=== PATIENT | male | born 1955 | race Asian ===

== ENCOUNTER 2020-02-17 18:30 | Inpatient (IN) | payer OTHER ==
[~2020-02-17] VITALS: Ht 165.1 cm; Wt 55.0 kg
[2020-02-17 18:32] VITALS: Ht 165.1 cm; Wt 55.0 kg
[2020-02-17 19:45] LABS: PLATELET COUNT 228 x10^3mcL (130-400)
[2020-02-17 19:55] LABS: BASOPHIL % 0 % (0-2); RED CELL DISTRIBUTION WIDTH 24.6 % (11.5-14.5)
[2020-02-17 20:15] LABS: rbc morphology (normal/abnorm) ABNORMAL (NORMAL); target cell (codocyte) 2+
[2020-02-17 20:18] LABS: ALKALINE PHOSPHATASE 128 U/L (46-116); ALT/SGPT 21 U/L (16-63); AST/SGOT 65 U/L (15-37); BILIRUBIN TOTAL 0.41 mg/dL (0.20-1.00); CALCIUM 8.3 mg/dL (8.5-10.1); CARBON DIOXIDE 35.8 mmol/L (21-32); CHLORIDE SERUM 109 mmol/L (98-107); GFR1 > 60 mL/min; GLUCOSE SERUM 132 mg/dL (74-106); LIPASE 35 IU/L (73-393); MAGNESIUM 2.4 mg/dL (1.8-2.4); SODIUM SERUM 149 mmol/L (136-145)
[2020-02-17 20:21] LABS: TOTAL PROTEIN, SERUM 5.9 g/dL (6.4-8.2)
[2020-02-17 20:23] LABS: POTASSIUM SERUM 2.3 mmol/L (3.5-5.1)
[2020-02-17 21:03] LABS: microscopic required? YES; urine erythrocyte TRACE (NEGATIVE)
[2020-02-17] MEDS ORDERED: PANTOPRAZOLE SO40 M1 PO (23:36)
[2020-02-17] MEDS ORDERED: PLAVIX75 M1 PO (23:36)
[2020-02-17] MEDS ORDERED: TENORMIN50 MG PO (23:36)
[2020-02-17] MEDS ORDERED: ARGINAID POWDE1 EACH PO (23:38)
[2020-02-17] MEDS ORDERED: VITAMIN C500 M6 PO (23:39)
[2020-02-17] MEDS ORDERED: COMPLETE SENIOR1 TA1 PO (23:42)
[2020-02-17] MEDS ORDERED: IRON65 MG PO (23:42)
[2020-02-17] MEDS ORDERED: AMERINET C40 MG/0.4 IJ (23:43)
[2020-02-17] MEDS ORDERED: DULCOLAX10 M1 RC (23:43)
[2020-02-17] MEDS ORDERED: KLOR-CON 1010 MEQ PO (23:43)
[2020-02-17] MEDS ORDERED: MILK OF MA400 MG/5 M PO (23:44)
[2020-02-17] MEDS ORDERED: KADIAN10 M1 PO (23:44)
[2020-02-17] MEDS ORDERED: MEDI-FIRST NON325 MG PO (23:45)
[2020-02-18] VITALS (7 sets, daily range): BP systolic 65–129; BP diastolic 33–104
[2020-02-18 08:06] LABS: PLATELET COUNT 153 x10^3mcL (130-400)
[2020-02-18 08:27] LABS: RED CELL DISTRIBUTION WIDTH 20.3 % (11.5-14.5)
[2020-02-18 08:30] LABS: CARBON DIOXIDE 32.2 mmol/L (21-32); CHLORIDE SERUM 112 mmol/L (98-107); GLUCOSE SERUM 81 mg/dL (74-106); POTASSIUM SERUM 3.3 mmol/L (3.5-5.1); SODIUM SERUM 150 mmol/L (136-145)
[2020-02-18 08:31] LABS: CALCIUM 7.9 mg/dL (8.5-10.1); CREATININE SERUM 0.8 mg/dL (0.7-1.3); GFR1 > 60 mL/min; MAGNESIUM 2.2 mg/dL (1.8-2.4); PHOSPHOROUS 1.8 mg/dL (2.5-4.9)
[2020-02-18 10:40] LABS: BAND NEUTROPHIL 2 % (0-10); MONOCYTE 2 % (0-7); SEGMENTED NEUTROPHILS 87 % (37-75); rbc morphology (normal/abnorm) ABNORMAL (NORMAL)
[2020-02-19] VITALS: BP 60/35
[2020-02-19 01:00] VITALS: BP 63/34
[2020-02-19 03:21] VITALS: BP 92/54
[2020-02-19 06:10] LABS: RED BLOOD CELLS 3.88 M/mm3 (4.52-5.90)
[2020-02-19 06:13] LABS: BASOPHIL % 0 % (0-2); PLATELET COUNT 115 x10^3mcL (130-400); RED CELL DISTRIBUTION WIDTH 20.9 % (11.5-14.5)
[2020-02-19 06:17] LABS: CALCIUM 7.5 mg/dL (8.5-10.1); CHLORIDE SERUM 116 mmol/L (98-107); CREATININE SERUM 1.2 mg/dL (0.7-1.3); GFR1 > 60 mL/min; GLUCOSE SERUM 126 mg/dL (74-106); MAGNESIUM 2.1 mg/dL (1.8-2.4); PHOSPHOROUS 2.1 mg/dL (2.5-4.9); SODIUM SERUM 152 mmol/L (136-145)
[2020-02-19 10:18] VITALS: BP 95/52
[2020-02-19 19:53] VITALS: BP 99/61
[2020-02-19 23:11] VITALS: BP 85/56
[2020-02-20] VITALS (8 sets, daily range): BP systolic 66–118; BP diastolic 38–73
[2020-02-20 06:02] LABS: BASOPHIL % 0 % (0-2); PLATELET COUNT 67 x10^3mcL (130-400); RED CELL DISTRIBUTION WIDTH 21.1 % (11.5-14.5)
[2020-02-20 06:28] LABS: BILIRUBIN TOTAL 0.46 mg/dL (0.20-1.00); CALCIUM 6.8 mg/dL (8.5-10.1); CREATININE SERUM 1.4 mg/dL (0.7-1.3); MAGNESIUM 1.8 mg/dL (1.8-2.4)
[2020-02-20 06:38] LABS: ALBUMIN 0.8 g/dL (3.4-5.0); POTASSIUM SERUM 2.9 mmol/L (3.5-5.1); TOTAL PROTEIN, SERUM 5.2 g/dL (6.4-8.2)
[2020-02-20 08:11] LABS: C REACTIVE PROTEIN 28.1 mg/dL (<=0.9)
[2020-02-21 03:06] VITALS: BP 93/57
[2020-02-21 06:12] LABS: BILIRUBIN TOTAL 0.45 mg/dL (0.20-1.00); CALCIUM 7.4 mg/dL (8.5-10.1); CARBON DIOXIDE 25.6 mmol/L (21-32); CREATININE SERUM 1.4 mg/dL (0.7-1.3); MAGNESIUM 1.8 mg/dL (1.8-2.4); PHOSPHOROUS 3.1 mg/dL (2.5-4.9); POTASSIUM SERUM 3.5 mmol/L (3.5-5.1)
[2020-02-21 06:15] LABS: ALBUMIN 0.8 g/dL (3.4-5.0); TOTAL PROTEIN, SERUM 5.3 g/dL (6.4-8.2)
[2020-02-21 06:26] LABS: PLATELET COUNT 52 x10^3mcL (130-400); RED CELL DISTRIBUTION WIDTH 20.5 % (11.5-14.5)
[2020-02-21 07:04] LABS: BAND NEUTROPHIL 7 % (0-10); MONOCYTE 2 % (0-7); SEGMENTED NEUTROPHILS 80 % (37-75); rbc morphology (normal/abnorm) ABNORMAL (NORMAL)
[2020-02-21 07:57] VITALS: BP 101/59
[2020-02-21 12:00] VITALS: BP 106/79
== END 2020-02-21 21:12 | disposition expired | DRG 720 ==
LOC: ED 18:30 → IC 02-18 01:12 → DU 02-18 01:12 → IC 02-19 01:22
PROVIDERS: Emergency Medicine; Internal Medicine; ADMIT Internal Medicine; ATTEND Internal Medicine
PROC: 30233N1 Transfusion of Nonautologous Red Blood Cells into Peripheral Vein, Percutaneous Approach (ICD-10-PCS; principal; 2020-02-18)
DX: A41.9 Sepsis, unspecified organism (principal); N17.0 Acute kidney failure with tubular necrosis; I21.A1 Myocardial infarction type 2; R65.21 Severe sepsis with septic shock; G93.40 Encephalopathy, unspecified; K65.0 Generalized (acute) peritonitis; K85.91 Acute pancreatitis with uninfected necrosis, unspecified; L89.159 Pressure ulcer of sacral region, unspecified stage; E87.8 Other disorders of electrolyte and fluid balance, not elsewhere classified; D64.9 Anemia, unspecified; E11.9 Type 2 diabetes mellitus without complications; E87.6 Hypokalemia; I25.10 Atherosclerotic heart disease of native coronary artery without angina pectoris; Z20.828 Contact with and (suspected) exposure to other viral communicable diseases; Z95.1 Presence of aortocoronary bypass graft; L02.211 Cutaneous abscess of abdominal wall; Z66 Do not resuscitate
CPT/HCPCS: 82962; 92526-GN; 92610-GN; C9113; G0378; J0295; J1815; J1885; J3480; J3490; J7030; J7040; J7042; J7050; P9016; Q0092; Q9967; U0003-CS